=== PATIENT | male | born 1940 | race Caucasian/White ===

== ENCOUNTER 2019-01-27 00:47 | Emergency (ER) | payer OTHER, MEDICARE ==
[2019-01-27 01:29] LABS: PLATELET COUNT 216 10^3/uL (150-400)
[2019-01-27] MEDS ORDERED: IOPAMIDOL (ISOVUE 370) 100 ML BTL IV ONE (01:37)
[2019-01-27] MEDS ORDERED: MECLIZINE HCL 25 MG TAB PO ONE (01:40)
--- NOTE | 2019-01-27 01:40 | EDPHY ---
H & P Stated Complaint: sudden onset dizziness Time Seen by Provider: 01/27/19 01:04 HPI/ROS: HPI The patient presents with dizziness, brought in by ambulance. The patient says he had a normal night tonight and was seated on the couch watching television. He thinks he turned his head to the side and then had acute onset of dizziness which he describes as the room spinning. His symptoms were mild, he continued watching television, however eventually went to bed and while lying in bed had ongoing symptoms. He did take a dose of Dramamine. His symptoms persisted and became more severe, thus he called paramedics. He was able to get dressed himself. He has had 1 prior episode of vertigo many years ago, this feels less severe. He does not have any headache, vomiting. He has a history of tinnitus though his tinnitus feels very mild right now. His reports that over the last several weeks he has been stumbling more than usual and seems more clumsy. He has not had any falls at home. REVIEW OF SYSTEMS 10 systems were reviewed and negative with the exception of the elements mentioned in the history of present illness. PMHx: History of CAD with stents in place, takes a large aspirin daily, GERD. Recently diagnosed with right retinal artery occlusion, currently receiving intra-ocular injections every 4 weeks Soc Hx: Housed, here with his PHYSICAL General Appearance: Alert, no distress Eyes: Pupils equal and round no pallor or injection ENT, Mouth: Mucous membranes moist Respiratory: There are no retractions, lungs are clear to auscultation Cardiovascular: Regular rate and rhythm Gastrointestinal: Abdomen is soft and non-tender, no masses, bowel sounds normal Neurological: A&Ox3, cranial nerves 2-12 intact with no nystatin miss, no pronator drift, there is abnormal finger to nose testing bilaterally. Patient has tremor near the end of these movements though is able to touch nose and finger Skin: Warm and dry, no rashes Musculoskeletal: Neck is supple non tender Extremities: symmetrical, full range of motion Psychiatric: Patient is oriented X 3, there is no agitation Source: Patient, Family Exam Limitations: No limitations - Personal History Current Tetanus/Diphtheria Vaccine: Yes Current Tetanus Diphtheria and Acellular Pertussis (TDAP): Yes - Medical/Surgical History Hx Asthma: No Hx Chronic Respiratory Disease: No Hx Diabetes: No Hx Cardiac Disease: No Hx Renal Disease: No Hx Cirrhosis: No Hx Alcoholism: No Hx HIV/AIDS: No Hx Splenectomy or Spleen Trauma: No Other PMH: enlarged prostae hernia surgery hernia repair AMI & stents - Social History Smoking Status: Never smoked Constitutional: Initial Vital Signs Temperature (C) 36.6 C 01/27/19 01:00 Heart Rate 78 01/27/19 01:00 Respiratory Rate 19 01/27/19 01:00 Blood Pressure 140/91 H 01/27/19 01:00 O2 Sat (%) 99 01/27/19 01:00 O2 Delivery Mode Room Air Allergies/Adverse Reactions: No Known Allergies Allergy (Unverified 11/20/10 16:24) Home Medications: Medication Instructions Recorded Aspirin EC [Aspirin EC 325 mg (*)] 325 mg PO DAILY #0 tab 02/01/14 Atorvastatin Calcium [Lipitor 40 80 mg PO DAILY #0 tab 02/01/14 mg (*)] Lisinopril [Zestril 2.5 mg (*)] 2.5 mg PO DAILY #0 tab 02/01/14 Metoprolol Tartrate [Lopressor 25 12.5 mg PO BID #0 tab 02/01/14 mg (*)] Meclizine HCl 25 mg PO Q6H PRN #20 tablet 01/27/19 Medical Decision Making - Diagnostics EKG Interpretation: EKG: Complete interpretation has been separately recorded in the [facility] archive. Summary impression: Ventricular trigeminy is present Imaging Results: CT head without contrast demonstrates no acute abnormality CTA head and neck demonstrate 50% stenosis of the left internal carotid artery. Both interpreted by direct Radiology. Differential Diagnosis: 78-year-old male with history of CAD with stents in place, recent diagnosis of what sounds like retinal artery occlusion, presents brought in from home in an ambulance for vertigo type symptoms with no associated features. His symptoms have been continuous and do not seem to be positional. It sounds that his balance has been off for the last several weeks, however, he has not had vertigo until today. On exam, he does have difficulty performing finger to nose testing. He does not have any nystagmus. The remainder of his neurologic exam is unremarkable. Plan for CT scan of head, CTA head and neck. Concerning for central versus peripheral vertigo. Patient initially did not improve much with meclizine. He went for scans which did demonstrate internal carotid artery stenosis of 50%, however this location does not correlate with the patient's symptoms. This is likely an incidental finding though should be followed up with his primary care doctor. The patient received a small dose of Ativan which caused complete resolution of his symptoms and he felt 100% better. His family we lays that he has been undergoing a lot of stress lately with his recent diagnosis of retinal artery occlusion which has significantly affected his vision and has prevented him from driving in doing tasks which he usually does. I wonder if anxiety could of contributed to the patient's symptoms. I have offered him admission to the hospital, he would like to go home. He was able to ambulate independently with a steady gait. I will discharge him and he can follow up with his primary care doctor. He is happy with this plan. - Data Points Laboratory Results: Laboratory Results 01/27/19 00:59 01/27/19 00:59 01/27/19 01/27/19 01/27/19 02:55 01:31 00:59 WBC RBC Hgb POC Hgb 16.0 gm/dL gm/dL (13.7-17.5) Hct POC Hct 47 % % (40-51) MCV MCH MCHC RDW Plt Count MPV Neut % (Auto) Lymph % (Auto) [place] % (Auto) Eos % (Auto) Baso % (Auto) Nucleat RBC Rel Count Absolute Neuts (auto) Absolute Lymphs (auto) Absolute Monos (auto) Absolute Eos (auto) Absolute Basos (auto) Absolute Nucleated RBC Immature Gran % Immature Gran # POC Sodium 144 mEq/L mEq/L (135-145) Sodium 142 mEq/L mEq/L (135-145) POC Potassium 3.4 mEq/L mEq/L (3.3-5.0) Potassium 4.0 mEq/L mEq/L (3.5-5.2) POC Chloride 105 mEq/L mEq/L (97-110) Chloride 104 mEq/L mEq/L (97-110) Carbon Dioxide 25 mEq/l mEq/l (22-31) POC Total CO2 23 mEq/L mEq/L (22-31) Anion Gap 13 mEq/L mEq/L (6-14) POC BUN 19 mg/dL mg/dL (7-23) BUN 19 mg/dL mg/dL (7-23) Creatinine 0.9 mg/dL mg/dL (0.7-1.3) POC Creatinine 1.0 mg/dL mg/dL (0.7-1.3) Estimated GFR > 60 Glucose 107 mg/dL H mg/dL (70-100) POC Glucose 122 mg/dL H mg/dL (70-100) Calcium 9.6 mg/dL mg/dL (8.5-10.4) Total Bilirubin 0.5 mg/dL mg/dL (0.1-1.4) AST 42 IU/L IU/L (17-59) ALT 44 IU/L IU/L (21-72) Alkaline Phosphatase 261 IU/L H IU/L (38-126) Total Protein 7.2 g/dL g/dL (6.3-8.2) Albumin 4.7 g/dL g/dL (3.5-5.0) Urine Color PALE YELLOW Urine Appearance CLEAR Urine pH 7.0 (5.0-7.5) Ur Specific [place] 1.026 (1.002-1.030) Urine Protein NEGATIVE (NEGATIVE) Urine Ketones NEGATIVE (NEGATIVE) Urine Blood NEGATIVE (NEGATIVE) Urine Nitrate NEGATIVE (NEGATIVE) Urine Bilirubin NEGATIVE (NEGATIVE) Urine Urobilinogen NEGATIVE EU EU (0.2-1.0) Ur Leukocyte Esterase NEGATIVE (NEGATIVE) Urine Glucose NEGATIVE (NEGATIVE) 01/27/19 00:59 WBC 8.06 10^3/uL 10^3/uL (3.80-9.50) RBC 5.15 10^6/uL 10^6/uL (4.40-6.38) Hgb 16.6 g/dL g/dL (13.7-17.5) POC Hgb Hct 47.9 % % (40.0-51.0) POC Hct MCV 93.0 fL fL (81.5-99.8) MCH 32.2 pg pg (27.9-34.1) MCHC 34.7 g/dL g/dL (32.4-36.7) RDW 12.4 % % (11.5-15.2) Plt Count 216 10^3/uL 10^3/uL (150-400) MPV 10.5 fL fL (8.7-11.7) Neut % (Auto) 32.4 % L % (39.3-74.2) Lymph % (Auto) 54.0 % H % (15.0-45.0) [place]ander % (Auto) 10.8 % % (4.5-13.0) Eos % (Auto) 2.2 % % (0.6-7.6) Baso % (Auto) 0.5 % % (0.3-1.7) Nucleat RBC Rel Count 0.0 % % (0.0-0.2) Absolute Neuts (auto) 2.61 10^3/uL 10^3/uL (1.70-6.50) Absolute Lymphs (auto) 4.35 10^3/uL H 10^3/uL (1.00-3.00) Absolute Monos (auto) 0.87 10^3/uL H 10^3/uL (0.30-0.80) Absolute Eos (auto) 0.18 10^3/uL 10^3/uL (0.03-0.40) Absolute Basos (auto) 0.04 10^3/uL 10^3/uL (0.02-0.10) Absolute Nucleated RBC 0.00 10^3/uL 10^3/uL (0-0.01) Immature Gran % 0.1 % % (0.0-1.1) Immature Gran # 0.01 10^3/uL 10^3/uL (0.00-0.10) POC Sodium Sodium POC Potassium Potassium POC Chloride Chloride Carbon Dioxide POC Total CO2 Anion Gap POC BUN BUN Creatinine POC Creatinine Estimated GFR Glucose POC Glucose Calcium Total Bilirubin AST ALT Alkaline Phosphatase Total Protein Albumin Urine Color Urine Appearance Urine pH Ur Specific [place] Urine Protein Urine Ketones Urine Blood Urine Nitrate Urine Bilirubin Urine Urobilinogen Ur Leukocyte Esterase Urine Glucose Medications Given: Discontinued Medications Lorazepam (Ativan) 1 mg PO EDNOW ONE Stop: 01/27/19 02:43 Last Admin: 01/27/19 02:49 Dose: 1 mg Meclizine HCl (Meclizine Hcl) 25 mg PO EDNOW ONE Stop: 01/27/19 01:41 Last Admin: 01/27/19 02:06 Dose: 25 mg Point of Care Test Results: Chemistry 01/27/19 01:31 POC Sodium 144 mEq/L mEq/L (135-145) POC Potassium 3.4 mEq/L mEq/L (3.3-5.0) POC Chloride 105 mEq/L mEq/L (97-110) POC Total CO2 23 mEq/L mEq/L (22-31) POC BUN 19 mg/dL mg/dL (7-23) POC Creatinine 1.0 mg/dL mg/dL (0.7-1.3) POC Glucose 122 mg/dL H mg/dL (70-100) ISTAT H&H 01/27/19 01:31 POC Hgb 16.0 gm/dL gm/dL (13.7-17.5) POC Hct 47 % % (40-51) Departure - Departure Disposition: Home, Routine, Self-Care Clinical Impression: Vertigo Internal carotid artery stenosis Qualifiers: Laterality: left Qualified Code(s): I65.22 - Occlusion and stenosis of left carotid artery Condition: Good Instructions: Vertigo (ED) Additional Instructions: Please make sure to drink plenty of fluids and get rest. If you're dizziness returns, you should try a dose of meclizine. If you still have dizziness, then you should come back to the emergency department. Please follow-up with your primary care doctor in 1-[address] scans did incidentally show that there is some narrowing of the carotid artery. This is something that your primary care doctor should be aware of. Referrals: Kely Hebert MD [[facility] [place] - As per Instructions Prescriptions: Meclizine HCl 25 mg PO Q6H PRN #20 tablet PRN Reason: vertigo
[2019-01-27] MEDS ORDERED: LORazepam 1 MG TAB PO ONE (02:42)
[2019-01-27 03:53] VITALS: BP 138/76
--- NOTE | 2019-01-27 06:55 | CPEKG ---
Test Reason : OPEN Blood Pressure : / mmHG Vent. Rate : 076 BPM Atrial Rate : 075 BPM P-R Int : 143 ms QRS Dur : 102 ms QT Int : 411 ms P-R-T Axes : 071 054 075 degrees QTc Int : 463 ms Sinus rhythm Ventricular trigeminy Minimal ST depression, anterior leads Confirmed by Homa Casillas ([id number]) on 01/27/2019 6:54:57 AM Referred By: PHYSICIAN ED Confirmed By:Homa Casillas
== END 2019-01-27 04:26 | disposition home or self-care (01) ==
LOC: EDUNIT#
DX: R42 Dizziness and giddiness (principal); I65.22 Occlusion and stenosis of left carotid artery
CPT/HCPCS: 70450; 70496; 70498; 93005; 99285; Q9967; 82435-PO; 82565-PO; 82947-PO; 84132-PO; 84295-PO; 84520-PO; 85014-ER